=== PATIENT | female | born 1930 | race Caucasian/White ===

== ENCOUNTER 2016-08-08 07:02 | Emergency (ER) | payer MEDICARE, BC ==
[~2016-08-08 07:02] MED LIST: ASA CHILDREN'S81 MG PO; ATIVAN-DPS0.5 MG PO; EXELON3 MG PO; FEOSOL-DPS325 MG PO; HYDROCODONE 5MG/5 MG PO; KLOR-CON M2020 ME1 PO; LASIX DPS40 MG PO; LOPRESSOR DPS50 MG PO; MAALOX DPS30 ML PO; NAMENDA5 MG PO; NITROSTAT0.4 MG SL; PLAVIX75 MG PO; PRAVACHOL40 MG PO; PROTONIX40 MG PO; SYNTHROID DPS0.05 MG PO; ZOLOFT DPS50 MG PO
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
== END 2016-08-08 11:17 ==
LOC: ER 07:02
DX: G30.1 Alzheimer's disease with late onset (principal); F02.80 Dementia in other diseases classified elsewhere, unspecified severity, without behavioral disturbance, psychotic disturbance, mood disturbance, and anxiety